=== PATIENT | male | born 1965 | race Caucasian/White ===

== ENCOUNTER → 2023-09-09 08:32 | Outpatient (REF) | payer BC, SELFPAY | LOC: RAD 08:32 | PROVIDERS: ATTENDING PHYSICIAN Specialist; FAMILY PHYSICIAN Family Medicine | DX: Z13.5 Encounter for screening for eye and ear disorders (principal) | CPT/HCPCS: 70030 ==

== ENCOUNTER 2023-09-19 21:25 | Emergency (ER) | payer BC, SELFPAY ==
[2023-09-19 21:27] VITALS: BP 112/62
[2023-09-19 22:20] VITALS: BMI 32.3
[2023-09-19] MEDS: ADACEL 0.5 ML IM (22:27)
--- NOTE | 2023-09-19 23:12 | ED.GENMED ---
History of Present Illness
General
Chief Complaint: Skin Surface Trauma
Source: patient and spouse
Exam Limitations: none
Time Seen by Provider: 09/19/23 22:02
Nursing documentation reviewed up to this point in time: agreed with
Travel History
Have you had any contact with someone who has COVID-19?: No
Do you have any symptoms of coronavirus? Fever > 100 degrees, chills, cough, shortness of breath, sore throat, loss of taste or smell, muscle aches, or headache?: No
History of Present Illness
History of Present Illness:
The patient is a 58-year-old male with past medical history of NIDDM presenting to the emergency department today after slipping in his kitchen hitting his scalp causing laceration to the back of his head did not lose consciousness otherwise feels
well denies any significant pain to his neck no numbness weakness no vomiting.
Past History
Past History
ED Past Medical History: NIDDM
ED Past Surgical History: Other (Hernia repair)
Social History
Tobacco: Non-smoker
Alcohol: Occasional
Personal:
Living: with family
Employment: Employed
Family History
Family History: Cancer
Review of Systems
Review of Systems
Allergies reviewed?: Yes
All Other Systems: ROS reviewed and negative except as documented in HPI and ROS
Phy Exam
Physical Exam
Physical Exam:
GENERAL: Alert , in no apparent distress
EYE: pupils equal and reactive
NECK: Supple, no significant adenopathy.
ENT: Left posterior parietal scalp with a semicircle shaped laceration 7 cm in length deep to the subcutaneous tissue no foreign body seen. o/p clr, mmm.
CARDIAC: Regular rate and rhythm .
LUNGS: Clear breath sounds bilaterally, no acute respiratory distress, no wheezes/rales/rhonchi
ABDOMEN: Soft, without focal tenderness, no r/g, no cvat
NEUROLOGICAL: Alert and oriented, no focal neuro deficits 5 out of 5 upper and lower extremity strength normal sensation with palpating bilaterally normal finger-nose no ritter no pronator drift
SKIN: Warm and dry, skin intact.
MUSCULOSKELETAL: No edema, well perfused.
PSYCH: Normal and appropriate interaction.
Course
Orders/Labs/Results
Orders:
Orders
09/19/23 22:18
CT Head W/o Iv Contrast Urgent
Comment:
Reason For Exam: head injury
Tetanus/Diphth/Acelpertussis [Adacel] 0.5 ml IM .ONCE ONE
Vital Signs
Initial and Last Documented VS:
Initial Vital Signs
Temp Pulse Resp BP Pulse Ox
97.4 F 64 18 112/62 98
09/19/23 21:27 09/19/23 21:27 09/19/23 21:27 09/19/23 21:27 09/19/23 21:27
Last Documented Vital Signs
Temp Pulse Resp BP Pulse Ox
97.4 F 64 18 112/62 98
09/19/23 21:27 09/19/23 21:27 09/19/23 21:27 09/19/23 21:27 09/19/23 21:27
Procedures
Laceration Closure
Left Posterior Parietal:
Status of Wound: clean
Size of Wound in cm: 7
Description of Wound Edges: sharp
Preparation: cleaned with saline
Anesthesia: 1% Lidocaine with epi
Revision/Debridement: routine- no revision and irrigate-direct pressure
Wound exploration: explored to base- no FB and no tendon involvement
Type of Closure: single layer closure
Skin Closure Material: 4-0 nylon
Number of sutures: 9
MDM/Problems Addressed
MDM/Problems Addressed:
58-year-old male presenting to the emergency department after hitting his head after slipping in his kitchen. Denies loss of consciousness not on blood thinners denies any significant symptoms but does have a laceration to his scalp. Because of
the trauma CT scan was obtained to ensure no intracranial injury this was normal. He was given an updated tetanus shot laceration was anesthetized cleaned thoroughly and closed with 9 total sutures. Sutures are absorbable. Return precautions
given for any signs of infection.
*Critical Care Note
Total Time (30-74mins, 75-104mins- exclusive of procedures): Not Applicable
ED Attending Note
-
Portions of this chart may have been created with voice recognition software.� Occasional wrong word or��sound alike� substitutions may have occurred due to the inherent limitations of voice recognition software.
Discharge Plan
Departure
Patient Disposition: Home (Routine Discharge)
Date of Disposition: 09/19/23
Time of Disposition: 23:47
Patient with high blood pressure during this ER visit?: No
Condition: Good
Covid-19: Not Applicable
Discharge Problem:
Laceration of scalp
Instructions: Laceration Repair With Stitches (DC)
Prescriptions:
No Action
omeprazole 20 MG capsule,delayed release(DR/EC)
20 mg PO DAILY
metformin 500 MG tablet extended release 24 hr
2,000 mg PO DAILY
lisinopril 20 MG tablet
20 mg PO Daily
Lexapro:
Daily
oxycodone-acetaminophen 5 MG/325 MG tablet
1 - 2 tab PO Q4HPRN PRN (Reason: pain) Qty: 30 0RF
ibuprofen 600 MG tablet
600 mg PO Q6HPRN PRN (Reason: mild pain) 0RF
Referrals:
Edward Arauz MD [Family Provider] -
Activity Restrictions/Additional Instructions:
You came to the emergency department today with concerns of a scalp laceration. You had 10 total sutures placed. Please keep the area clean covered. you can start putting ointment to help these dissolve after 5 days. Return to the emergency
department for any worsening, new or concerning symptoms.
Interventions
Interventions:
*Risk Screen - Suicide Last Done: 09/19/23 21:27
*General Assessment Last Done: 09/19/23 22:20
*Neglect/Abuse Screening Last Done: 09/19/23 21:27
ED- Fall Risk Assessment Last Done: 09/19/23 22:21
*ED COVID-19 Vaccine History Last Done: 09/19/23 22:20
ED-Skin Assessment Last Done: 09/19/23 22:22
Discharge Date and Time
Print Language: ITALIAN
== END 2023-09-19 23:56 | disposition home or self-care (01) ==
LOC: EMR 21:25
PROVIDERS: EMERGENCY PHYSICIAN Emergency Medicine; FAMILY PHYSICIAN Family Medicine
DX: S01.01XA Laceration without foreign body of scalp, initial encounter (principal); W01.198A Fall on same level from slipping, tripping and stumbling with subsequent striking against other object, initial encounter; Y92.000 Kitchen of unspecified non-institutional (private) residence as the place of occurrence of the external cause; E11.9 Type 2 diabetes mellitus without complications; K21.9 Gastro-esophageal reflux disease without esophagitis; Z79.84 Long term (current) use of oral hypoglycemic drugs
CPT/HCPCS: 99284; 12002; 90471; 70450; 90715

== ENCOUNTER → 2023-09-20 06:36 | Outpatient (REF) | payer BC, SELFPAY | LOC: MRI 3T 06:36 | PROVIDERS: ATTENDING PHYSICIAN Specialist; FAMILY PHYSICIAN Family Medicine | DX: G31.84 Mild cognitive impairment of uncertain or unknown etiology (principal) | CPT/HCPCS: 70551 ==

== ENCOUNTER → 2023-10-08 14:12 | Outpatient (REF) | payer BC, SELFPAY | LOC: HWRAD 14:12 | PROVIDERS: ATTENDING PHYSICIAN Specialist; FAMILY PHYSICIAN Family Medicine | DX: I63.312 Cerebral infarction due to thrombosis of left middle cerebral artery (principal) | CPT/HCPCS: 93880 ==

== ENCOUNTER → 2023-10-26 17:34 | Outpatient (REF) | payer BC, SELFPAY | LOC: RCS 17:34 | PROVIDERS: ATTENDING PHYSICIAN Family Medicine | DX: R42 Dizziness and giddiness (principal); Z86.73 Personal history of transient ischemic attack (TIA), and cerebral infarction without residual deficits | CPT/HCPCS: 93306 ==

== ENCOUNTER 2023-10-27 15:57 | Inpatient (IN) | payer BC, SELFPAY ==
[2023-10-27] VITALS (7 sets, daily range): BP systolic 108–142; BP diastolic 44–79; BMI 33.0; BMI 31.8
--- NOTE | 2023-10-27 11:26 | ED.GENMED ---
History of Present Illness
<LYUBOV Harrison - Last Filed: 10/27/23 14:21>
General
Chief Complaint: Dizziness
Source: patient and ambulance crew
Exam Limitations: none
Time Seen by Provider: 10/27/23 11:24
Nursing documentation reviewed up to this point in time: agreed with
Travel History
Have you had any contact with someone who has COVID-19?: No
Do you have any symptoms of coronavirus? Fever > 100 degrees, chills, cough, shortness of breath, sore throat, loss of taste or smell, muscle aches, or headache?: No
History of Present Illness
History of Present Illness:
Patient is a 58-year-old male with hx of 'mini stroke' , pre diabetic brought by EMS for evaluation. notes the patient seemed a little off having difficulty focusing for the past couple days and then today had diarrhea bowel incontinence
this morning and vomited several times. Patient was given Zofran and route.
reports this morning she came downstairs and found patient in the bathroom with the door open and stool was all over the place. He was diaphoretic and then started to vomit and was confused as per
reports patient has had issues with his memory for about 1 year. He does have a neurologist, DR Ivory however they do not have a diagnosis yet. Patient had a recent outpatient MRI which showed old strokes.
Patient has a history of anxiety depression and has been on multiple medications. Recently his Lexapro was weaned from 20 mg daily to 10 mg for 5 days and patient was recently started on Luvox(5 days ago). In addition to other medications patient
is on Loxitane lamotrigine and Wellbutrin.
Patient presents to the ER awake alert he is having trouble remembering this morning. He denies any headache denies any upper or lower extremity numbness tingling weakness. He does not report his nausea feels better from the medication given by
EMS.
Patient also has had several episodes of mild intermittent chest discomfort with exertion
Past History
<LYUBOV Harrison - Last Filed: 10/27/23 14:21>
Past History
ED Past Medical History: NIDDM
ED Past Surgical History: Other (Hernia repair)
Social History
Tobacco: Non-smoker
Alcohol: Occasional
Personal:
Living: with family
Employment: Employed
Family History
Family History: Cancer
Review of Systems
<LYUBOV Harrison - Last Filed: 10/27/23 14:21>
Review of Systems
Allergies reviewed?: Yes
Other source history: family
All Other Systems: ROS reviewed and negative except as documented in HPI and ROS
Constitutional: Reports no symptoms; Denies fever, fatigue or chills
EENT: Reports no symptoms
Respiratory: Reports no symptoms; Denies trouble breathing
Cardiac: Reports no symptoms
ABD/GI: Reports nausea, vomiting and diarrhea; Denies abdominal pain
: Reports no symptoms
Musculoskeletal: Reports no symptoms
Skin: Reports no symptoms
Neurological: Reports other (memory issues, not new)
Psychiatric: Reports no symptoms
Phy Exam
<LYUBOV Harrison - Last Filed: 10/27/23 14:21>
General Physical Exam
General Presentation: no apparent distress
General age: appears stated age
General Skin: warm and dry
General Habitus: normal
General Mental: alert
General Hydration: appears well hydrated
Cardiovascular Exam
Cardiovascular Exam: regular rate/rhythm, no murmur and normal peripheral pulses
Pulmonary Exam
Pulmonary Exam: lungs clear and no respiratory distress
Neurological Exam
Neurological Exam: alert and oriented x3
Musculoskeletal Exam
Musculoskeletal Exam: full ROM
Skin Exam
Skin Exam: normal color
Psychiatric Exam
Psychiatric Exam: normal mood/affect
Course
<LYUBOV Harrison - Last Filed: 10/27/23 14:21>
Orders/Labs/Results
Orders:
Orders
10/27/23 11:25
Cardiac Monitoring- Treatment ONCE
Urinalysis Reflex To Culture Urgent
10/27/23 11:26
Electrocardiogram (*1) Stat
Reason for Study: Abdominal Pain
CT Head W/o Iv Contrast Urgent
Comment:
Reason For Exam: change in ms
EKG- Treatment ONCE
10/27/23 11:30
Complete Blood Count/With Diff Urgent
Comprehensive Metabolic Panel Urgent
Lipase Urgent
10/27/23 11:56
0.9% Sodium Chloride 1000 ml [Nss] 1,000 ml IV BOLUS
10/27/23 12:06
Add On- LAB Urgent
Tests Added?: troponin
10/27/23 12:13
Electrocardiogram (*1) Urgent
Reason for Study: Chest Pain
EKG- Treatment ONCE
10/27/23 12:14
Troponin I Urgent
Abnormal Lab Results
10/27/23 10/27/23
11:25 11:30
RBC 4.58 L 10^6/uL
(4.70-6.10)
Carbon Dioxide 12 L* mmol/L
(22-30)
Glucose 157 H mg/dl
(70-99)
POC Glucose 146 H mg/dl
(70-99)
10/27/23 11:30
10/27/23 11:30
Vital Signs
Initial and Last Documented VS:
Initial Vital Signs
Temp Pulse Resp BP Pulse Ox
97.9 F 94 18 122/72 100
10/27/23 11:21 10/27/23 11:21 10/27/23 11:21 10/27/23 11:21 10/27/23 11:21
Last Documented Vital Signs
Temp Pulse Resp BP Pulse Ox
97.9 F 89 19 139/68 97
10/27/23 11:21 10/27/23 12:15 10/27/23 12:15 10/27/23 12:00 10/27/23 12:15
Tamper Operator consulted with Physician
Tamper Operator consulted with physician?: Yes
Name of Physician Consulted: Hannah
<Trey Verduzco MD - Last Filed: 10/27/23 14:12>
Orders/Labs/Results
Orders:
Orders
10/27/23 11:25
Cardiac Monitoring- Treatment ONCE
Urinalysis Reflex To Culture Urgent
10/27/23 11:26
Electrocardiogram (*1) Stat
Reason for Study: Abdominal Pain
CT Head W/o Iv Contrast Urgent
Comment:
Reason For Exam: change in ms
EKG- Treatment ONCE
10/27/23 11:30
Complete Blood Count/With Diff Urgent
Comprehensive Metabolic Panel Urgent
Lipase Urgent
10/27/23 11:56
0.9% Sodium Chloride 1000 ml [Nss] 1,000 ml IV BOLUS
10/27/23 12:06
Add On- LAB Urgent
Tests Added?: troponin
10/27/23 12:13
Electrocardiogram (*1) Urgent
Reason for Study: Chest Pain
EKG- Treatment ONCE
10/27/23 12:14
Troponin I Urgent
Abnormal Lab Results
10/27/23 10/27/23
11:25 11:30
RBC 4.58 L 10^6/uL
(4.70-6.10)
Carbon Dioxide 12 L* mmol/L
(22-30)
Glucose 157 H mg/dl
(70-99)
POC Glucose 146 H mg/dl
(70-99)
10/27/23 11:30
10/27/23 11:30
Vital Signs
Initial and Last Documented VS:
Initial Vital Signs
Temp Pulse Resp BP Pulse Ox
97.9 F 94 18 122/72 100
10/27/23 11:21 10/27/23 11:21 10/27/23 11:21 10/27/23 11:21 10/27/23 11:21
Last Documented Vital Signs
Temp Pulse Resp BP Pulse Ox
97.9 F 89 19 139/68 97
10/27/23 11:21 10/27/23 12:15 10/27/23 12:15 10/27/23 12:00 10/27/23 12:15
<LYUBOV Harrison - Last Filed: 10/27/23 14:21>
MDM/Problems Addressed
Differential Diagnosis Includes:
not limited to: Near syncope, dehydration ACS
MDM/Problems Addressed:
Patient is a 58-year-old male currently being worked up for memory issues as per . He has had issues with memory for the past year. He was found on the toilet today diaphoretic confused and incontinent of stool and also vomited. Patient also
has had intermittent chest pain with exertion over the past several days. Patient presents awake alert nausea is improved on arrival. Patient confusion unable to remember what he did this morning. Patient with a low bicarb of 12 given fluids in
the ER no further nausea vomiting. Patient is on medication for anxiety depression and recently had Lexapro weaned and Luvox started
CAT scan head unremarkable. Patient evaluated by ED physician will admit for near syncope, metabolic acidosis
Chronic conditions affecting care:
Memory issues anxiety depression
<LYUBOV Harrison - Last Filed: 10/27/23 14:21>
*Radiology
Radiology exam reviewed: radiology read reviewed
*Pulse Oximetry
Patient hypoxic: no
*EKG
Interpreted by ED Provider?: Yes
Interpretation: normal
Comparison EKG: no changes
Heart Rate: 84
Rate: normal
Rhythm: sinus
Ischemia: non-specific ST changes
*Critical Care Note
Total Time (30-74mins, 75-104mins- exclusive of procedures): Not Applicable
ED Attending Note
<LYUBOV Harrison - Last Filed: 10/27/23 14:21>
-
Portions of this chart may have been created with voice recognition software.� Occasional wrong word or��sound alike� substitutions may have occurred due to the inherent limitations of voice recognition software.
<Trey Verduzco MD - Last Filed: 10/27/23 14:12>
ED Attending Note
Patient seen and examined by attending physician: Yes
I performed the substantive portion of visit, reviewed & personally made and approve the management plan that is documented in note by myself or TESS.: Yes
ED Attending Note:
58-year-old male with a history of mild memory issues and depression with a severe near syncopal episode. Patient does not exactly recall what happened but apparently he went to the bathroom after having a bowel movement the next thing he recalls
is being on the couch diaphoretic clammy and pale. This is where his found him. No chest pain or shortness of breath. However he has had 2 episodes of exertional chest pain in the last few weeks. No headache visual issues etc. Currently at
baseline. Patient had an MRI that did show a recent stroke. He had outpatient echocardiogram and carotid ultrasound. Ultrasound shows plaque and less than 50% stenosis.
Patient's exam is relatively unremarkable. He is awake alert and oriented. He is warm and dry. Perfusing well. Stable vital signs. Speech is normal. Cranial nerves II through XII intact. [id number] is normal. No drift. Lower extremity
strength normal.
Impression: Likely this was a vasovagal near syncope related to going to the bathroom. However his states he had other similar episodes unrelated to this scenario. In addition he has had 2 episodes of exertional chest pain recently. He also
has a lacunar infarct by MRI recently. Given the uncertainty of what actually occurred along with these other symptoms patient warrants further inpatient management.
Discharge Plan
Departure
Patient Disposition: Admit
Date of Disposition: 10/27/23
Time of Disposition: 14:20
Admit to: Telemetry
Admit to doctor: Kerline
Presentation/result/management discussed w/ accepting MD/DO: Hospitalist
Patient with high blood pressure during this ER visit?: No
Condition: Fair
Covid-19: Not Applicable
Discharge Problem:
Near syncope, vomiting and diarrhea, Chest pain
Prescriptions:
No Action
atorvastatin [Lipitor] 40 mg Tablet
40 mg PO DAILY
omeprazole 40 mg Capsule,Delayed Release(Dr/Ec)
40 mg PO DAILY
lamotrigine [Lamictal] 25 mg Tablet
25 mg PO DAILY
lisinopril 10 mg Tablet
10 mg PO DAILY
loxapine succinate 10 mg Capsule
10 mg PO QPM
fluvoxamine 50 mg Tablet
50 mg PO DAILY
metformin 500 mg Tablet Extended Release 24 Hr
1,000 mg PO QPM
bupropion HCl [Wellbutrin XL] 300 mg Tablet Extended Release 24 Hr
300 mg PO DAILY
bupropion HCl [Wellbutrin XL] 150 mg Tablet Extended Release 24 Hr
150 mg PO DAILY
alfuzosin 10 mg Tablet Extended Release 24 Hr
10 mg PO DAILY
tadalafil 5 mg Tablet
5 mg PO DAILY
memantine 10 mg Tablet
10 mg PO BID
Jardiance 10 mg Tablet
10 mg PO DAILY
Wegovy 0.25 mg/0.5 mL Pen Injector
0.25 mg SC TU
alprazolam [Xanax] 1 mg Tablet
1 mg PO BIDPRN PRN (Reason: anxiety)
Referrals:
Edward Arauz MD [Family Provider] -
Interventions
Interventions:
*Risk Screen - Suicide Last Done: 10/27/23 12:28
*General Assessment Last Done: 10/27/23 11:21
*Neglect/Abuse Screening Last Done: 10/27/23 12:28
ED- Neurological Assessment Last Done: 10/27/23 11:31
ED- Cardiac Assessment Last Done: 10/27/23 12:30
ED Swallowing Screen Last Done: 10/27/23 11:31
Discharge Date and Time
Print Language: GUATEMALAN
[2023-10-27 11:27] LABS: Glucose - Point of Care 146 mg/dl (70-99)
[2023-10-27 11:34] LABS: % Basophils 0.8 % (0-2); % Eosinophils 2.7 % (0-6); % Immature Granulocytes 0.5 % (0-0.5); % Lymphocytes 21.8 % (20.5-51.1); % Monocytes 7.1 % (1.7-9.3); % Neutrophils 67.1 % (42.2-75.2); Absolute Basophils 0.1 10^3/uL (0-0.2); Absolute Eosinophils 0.2 10^3/uL (0-0.7); Absolute Lymphocytes 1.6 10^3/uL (1.2-3.4); Absolute Monocytes 0.5 10^3/uL (0.1-0.6); Absolute Neutrophils 4.9 10^3/uL (1.4-6.5); Mean Corp Hgb Conc. 33.3 g/dL (33.0-37.0); Mean Corpuscular Hgb 30.6 pg (27.0-31.0); Mean Corpuscular Volume 91.7 fL (80.0-94.0); Mean Platelet Volume 8.7 fL (7.4-10.4); Nucleated Red Blood Cells % 0 % (-); Platelet Count 250 10^3/uL (130-400); Red Blood Cell Count 4.58 10^6/uL (4.70-6.10); Red Cell Dist. Width 13.9 % (11.5-14.5); White Blood Cell Count 7.4 10^3/uL (4.8-10.8)
[2023-10-27 11:53] LABS: ALT (SGPT) 24 U/L (0-50); AST (SGOT) 36 U/L (17-59); Albumin 4.2 g/dl (3.5-5.0); Alkaline Phosphatase 72 U/L (38-126); Blood Urea Nitrogen 13 mg/dl (9-20); Calcium 9.4 mg/dl (8.4-10.2); Carbon Dioxide 12 mmol/L (22-30); Chloride 107 mmol/L (98-107); Estimated Creatinine Clearance 80 ml/min; Glucose 157 mg/dl (70-99); Potassium 4.6 mmol/L (3.5-5.1); Sodium 138 mmol/L (135-145); Total Bilirubin 0.6 mg/dl (0.2-1.3); Total Protein 7.1 g/dl (6.3-8.2); eGFR > 60.00
[2023-10-27 12:10] LABS: Lipase 201 U/L (23-300)
[2023-10-27] MEDS: NSS 1000 IV (12:26)
[2023-10-27 12:52] LABS: Troponin I < 0.012 ng/ml
--- NOTE | 2023-10-27 15:00 | HPS.HSE ---
Family Physician
-
Family Physician: Edward Arauz
Chief Complaint
-
Vomiting, diarrhea, intermittent chest pain, increased confusion
History of Present Illness
58-year-old male from home by EMS who his states he has been off for the past few days having difficulty focusing and off balance. She states physical therapy has been there twice to assess for gait disturbance. The patient recalls having to
have a bowel movement this morning then the next thing he knew he was on the sofa vomiting. His states she saw stool formed all over the bathroom then found her sitting on the sofa diaphoretic with confusion and he began to vomit
several times. He was given Zofran en route to the hospital. He has history of prior strokes found on MRI 3 weeks ago and some memory impairment over the past year of unclear etiology. He follows with Dr. UMANA however does not have a formal
diagnosis yet. He used to drink daily hard liquor 3-4 drinks a day for 5 years stopped approximately 15 months ago. He also had complained of mild intermittent chest pain with exertion several episodes and had an echo yesterday 10/27/2023 he has
follow-up appointment with [facility] on December 13.. He recently had his Lexapro wean from 20 mg daily to 5 mg over the past 5 days and was started on Luvox 5 days ago in addition to Lamictal, Wellbutrin and Loxitane for his anxiety and
depression. He is on Wegovy 0.25 mg subcu on Tuesdays for weight loss his last dose was 1 week ago 10/19/2023.
He has past medical history of GERD, anxiety, depression, DM2, impaired vision, CVA,? Memory impairment, obesity, former alcohol abuse 5 years stopped 15 months ago
Medical History
Past Medical History
Past Medical History: Reports Other
Additional Past Medical History:
GERD
anxiety/depression
DM2
impaired vision
CVA: Prior lacunar infarct right bills radiata/left frontal lobe unknown year
Memory impairment x 1 year no formal diagnosis
obesity
Past Surgical History: Reports Other
Additional Past Surgical History:
Hernia repair
Laparoscopic cholecystectomy November 2016
Gastric sleeve surgery
Social History
Tobacco: Former Smoker (Quit 40 years ago)
Alcohol: Former (3-4 drinks of hard liquor daily stopped 15 months ago end of 2021)
Personal:
Living: With Family ()
Family History
Family History: Other (Father [place] age 60, CVA from lung cancer mother lung cancer)
Allergies / Home Medications
Allergies reflects when Allergies were last updated in [facility].
Home Medications with original date entered in [facility]
Allergy/Medication List:
Allergies
Allergy/AdvReac Type Severity Reaction Status Date / Time
No Known Allergies Allergy Verified 09/19/23 21:30
Home Medications
Aspir-81 81 mg PO DAILY 10/27/23
alfuzosin 10 mg tablet,extended release 24 hr 10 mg PO DAILY Urinary Issue 10/27/23
alprazolam 1 mg tablet (Xanax) 1 mg PO BIDPRN PRN anxiety 10/27/23
atorvastatin 40 mg tablet (Lipitor) 40 mg PO DAILY High Cholesterol 10/27/23
bupropion HCl 150 mg 24 hr tablet, extended release (Wellbutrin XL) 150 mg PO DAILY Mental Health 10/27/23
bupropion HCl 300 mg 24 hr tablet, extended release (Wellbutrin XL) 300 mg PO DAILY Mental Health 10/27/23
empagliflozin 10 mg tablet (Jardiance) 10 mg PO DAILY Diabetes 10/27/23
fluvoxamine 50 mg tablet 50 mg PO DAILY Mental Health 10/27/23
lamotrigine 25 mg tablet (Lamictal) 25 mg PO DAILY Neurological Condition 10/27/23
lisinopril 10 mg tablet 10 mg PO DAILY Blood Pressure 10/27/23
loxapine succinate 10 mg capsule 10 mg PO QPM Mental Health 10/27/23
memantine 10 mg tablet 10 mg PO BID Neurological Condition 10/27/23
metformin 500 mg tablet,extended release 24 hr 1,000 mg PO QPM Diabetes 10/27/23
omeprazole 40 mg capsule,delayed release 40 mg PO DAILY Gastrointestinal Issue 10/27/23
semaglutide (weight loss) 0.25 mg/0.5 mL subcutaneous pen injector (Wegovy) 0.25 mg SC TU Diabetes 10/27/23
tadalafil 5 mg tablet 5 mg PO DAILY Urinary Issue 10/27/23
Review of Systems
-
History Source: Patient and Family ()
Constitutional: Denies Fever or Chills
EENT: Denies Sore Throat or Runny Nose
Respiratory: Denies Cough or Trouble Breathing
Cardiac: Reports Chest Pain (Intermittent) and Diaphoresis
Abdomen/GI: Reports Nausea, Vomiting and Diarrhea; Denies Abdominal Pain, Constipated, Bloody Stools or Black Stools
: Denies Dysuria, Frequency, Flank Pain, Incontinence or Difficulty Voiding
Musculoskeletal: Denies Joint Pain or Edema
Skin: Denies Itching or Rash
Neurological: Reports Headache; Denies Dizzy or Weakness
Endocrine: Reports No Symptoms
Hematologic/Lymphatic: Reports No Symptoms
Psych: Reports Calm
Physical Exam
Vital Signs
Vital Signs
Temp Pulse Resp BP Pulse Ox
97.9 F 91 18 142/76 100
10/27/23 11:21 10/27/23 14:52 10/27/23 12:30 10/27/23 14:52 10/27/23 12:30
Physical Exam
General: Comfortable, Conversant and Other (Slight memory impairment cannot recall all events of today); No Pain or Fever
HEENT: NormoCephalic, Anicteric, Moist mucous membranes, PERRLA, [place] Conjunctivae, No Ptosis and Neck Nontender
Respiratory: Clear; No Wheezes, Rales or Rhonchi
Cardiac: S1/S2 and Regular Rhythm; No Murmur, Rub, Gallop or Peripheral Edema
Breast: Deferred by me
GI: Soft, Non Tender, Non Distended, Normal Bowel Sounds and No Hepatosplenomegaly
Rectal: Deferred by Provider
Genito-urinary: Deferred by me
Musculoskeletal: No Clubbing, No Cyanosis and No Edema
Skin: Warm and Dry; No Rash
Neuro: AO x 3 (But with slight memory impairment cannot recall events from today from bathroom to the living room), Cranial Nerves Intact and No Sensory Deficits; No Slurred Speech, Facial Droop or Tremors
Psych: Calm
Laboratory Results
-
10/27/23 11:30
10/27/23 11:30
Laboratory Results
Total Bilirubin 0.6 mg/dl (0.2-1.3) 10/27/23 11:30
AST 36 U/L (17-59) 10/27/23 11:30
ALT 24 U/L (0-50) 10/27/23 11:30
Alkaline Phosphatase 72 U/L (38-126) 10/27/23 11:30
Troponin I < 0.012 ng/ml 10/27/23 12:14
Lipase 201 U/L (23-300) 10/27/23 11:30
Data Reviewed
-
CT Scan: Report Reviewed by me
Lab Data: Labs Reviewed by me
Impression/Plan
-
Impression/plan:
Observation TELE
#Vomiting/diarrhea concern for acute gastroenteritis
Last dose of Wegovy 0.25 mg 1 week ago 10/19/2023
-Check stool WBC, stool culture, C. difficile
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
-OBST series -if negative may have clears and advance as tolerated
-IV Zofran as needed nausea
-IV NSS
-IV PPI
EKG: NSR 84 bpm, QTc 449 MS no significant change from November 2016
#Increased memory impairment from baseline cognitive impairment prior history of strokes, prior alcohol use, depression
#Hx cognitive impairment x 1 year no formal diagnosis follows with neuro
#CVA: Prior lacunar infarct right bills radiata/left frontal lobe unknown year
-Tylenol for headache
-Continue memantine 10 mg twice daily
cont asa 81 mg daily
-Check orthostatic vitals
CT head: No acute intracranial normality
MRI brain 09/20/2023 without contrast prior lacunar infarct in the right bills radiata and left frontal lobe
Carotid ultrasound 10/08/2023: Calcified plaque is identified scattered throughout the bilateral cervical carotid system less than 50% stenosis
#Prior alcohol abuse
-Used to drink 3-4 hard liquor drinks stopped 15 months ago end of 2021
#Hx gastric sleeve surgery
#GERD
-IV PPI, prior omeprazole 40 mg daily
#HTN�benign
BP 142/76
-Continue lisinopril 10 mg daily with hold parameters
#DM2
-Accu-Cheks SSI, check HgbA1c
-Hold metformin 1000 mg every afternoon, Jardiance 10 mg daily
#Anxiety/depression
-When able to tolerate p.o.May resume Wellbutrin, fluvoxamine 50 Mg daily, Lamictal 25 mg daily, loxapine 10 mg every afternoon
-Xanax 1 mg p.o. twice daily as needed anxiety
#BPH
-Continue alfuzosin 10 mg daily
-Bladder scan as needed
#Obesity due to excess calorie consumption�BMI 33 EKG
Patient currently on Wegovy 0.25 Mg subcu Tuesdays10/19/23 last dose
DVT prophylaxis
Scd's
Full code
--- NOTE | 2023-10-27 15:09 | W.PN.UPDATE ---
Update Note
Progress Note Update
This serves an an addendum to H&P written by DEPUTY CHIEF COUNSEL Nathalie Colbert
I saw and examined the patient.
The DEPUTY CHIEF COUNSEL's note was reviewed and I agree with the note.
Comment:
Mr. Edward Terrell is a 58 yo man with hx NIDDM, anxiety/depression who presents to the ER with confusion, vomiting and diarrhea. Patient has had recent work-up of memory issues over past year with outpatient MRI showing old strokes. This morning
patient reports watching tv and eating some pretzels waiting for to come downstairs. He doesn't remember getting to bathroom where he did not make it to toilet. found him on the couch, diaphoretic and vomiting. Currently patient feels
well, no abdominal pain or nausea. He has not eaten anything since. He is able to report entire history and work up of memory issues over past year. Suspect transient confusion in setting of GI upset related to TME 2/2 enteritis versus vasovagal
reaction?
Triage Vitals: T 97.9, P 94, RR 18, BP 122/72, SpO2 100%
LABS: WBC 7.4, Hg 14, PLT 250, Na 138, K+ 4.7, CO2 12, Cr 1.3, Trop negative
HEAD CT
IMPRESSION:
No evidence of acute intracranial abnormality.
Bowel Incontinence
Vomiting
-concern for enteritis
-will obtain obstruction series and stool studies if able to collect
-admit to telemetry
-advance diet as tolerated (if x-ray OK)
-IVF
-hold WEB SITE ADMIN Semaglutide and may need to
Metabolic Acidosis 2/2 diarrhea
-IVF as above
-PT/OT
Confusion; TME 2/2 above versus vasovagal episode?
-currently resolved
Chest pain with exertion
-patient has cardiology appt in November
-Troponin negative
-will need outpatient stress test
Hx CVA
-continue WEB SITE ADMIN asa/statin
Anxiety
-WEB SITE ADMIN regimen
Memory Loss
-patient with hx alcohol use likely contributing as well as finding old strokes, depression
-follows with neurology as outpatient
DVT PPx Lovenox subQ
FULL CODE
[2023-10-27] MEDS: TYLENOL 650 MG PO ×2 (15:45→20:49)
[2023-10-27] MEDS: PROTONIX IV 40 MG IV (15:46)
[2023-10-27 15:54] LABS: Urine Albumin Trace (Neg - Trace); Urine Bilirubin Negative (Negative); Urine Character Clear (Clear); Urine Color Yellow; Urine Glucose 3+ (Negative); Urine Ketone 1+ (Negative); Urine Leukocyte Negative (Negative); Urine Nitrite Negative (Negative); Urine Occult Blood 1+ (Negative); Urine Specific Gravity 1.015 (<1.030); Urine Urobilinogen Negative (Neg - 1+)
[2023-10-27 16:01] LABS: Urine Squamous Cell 0-2 /LPF (Few); Urine White Cell 0-2 /HPF (0-5)
[2023-10-27 16:02] LABS: Urine Bacteria Few (Negative)
[2023-10-27 17:34] LABS: Magnesium 2.3 mg/dl (1.6-2.3)
[2023-10-27] MEDS: SODIUM BICARBONATE 1150 MEQ IV (17:52)
[2023-10-27] MEDS: NAMENDA 10 MG PO (20:50)
[2023-10-28 03:15] VITALS: BP 114/64; BP 124/69; BP 96/60; PULSE 61; PULSE 64; PULSE 68
[2023-10-28 06:36] LABS: % Basophils 0.7 % (0-2); % Eosinophils 2.1 % (0-6); % Immature Granulocytes 0.4 % (0-0.5); % Lymphocytes 20.4 % (20.5-51.1); % Monocytes 7.6 % (1.7-9.3); % Neutrophils 68.8 % (42.2-75.2); Absolute Basophils 0.1 10^3/uL (0-0.2); Absolute Eosinophils 0.2 10^3/uL (0-0.7); Absolute Lymphocytes 1.9 10^3/uL (1.2-3.4); Absolute Monocytes 0.7 10^3/uL (0.1-0.6); Absolute Neutrophils 6.5 10^3/uL (1.4-6.5); Hematocrit 39.4 % (39.0-52.0); Hemoglobin 13.2 g/dL (13.0-18.0); Mean Corp Hgb Conc. 33.5 g/dL (33.0-37.0); Mean Corpuscular Hgb 30.5 pg (27.0-31.0); Mean Platelet Volume 8.8 fL (7.4-10.4); Nucleated Red Blood Cells % 0 % (-); Platelet Count 210 10^3/uL (130-400); Red Blood Cell Count 4.33 10^6/uL (4.70-6.10); White Blood Cell Count 9.5 10^3/uL (4.8-10.8)
[2023-10-28 06:53] LABS: Blood Urea Nitrogen 13 mg/dl (9-20); Calcium 8.9 mg/dl (8.4-10.2); Carbon Dioxide 29 mmol/L (22-30); Chloride 103 mmol/L (98-107); Estimated Creatinine Clearance 78 ml/min; Glucose 95 mg/dl (70-99); HDL Cholesterol 60 mg/dl; LDL Cholesterol, Calculated 50 mg/dl; Potassium 4.2 mmol/L (3.5-5.1); Sodium 138 mmol/L (135-145); Total Cholesterol 128 mg/dl (50-199); Triglyceride 92 mg/dl (10-149); Very Low Density Lipoprotein 18 mg/dl (0-30); eGFR > 60.00
[2023-10-28 07:00] VITALS: BP 129/67
[2023-10-28] MEDS: SODIUM BICARBONATE 1150 MEQ IV (08:10)
[2023-10-28] MEDS: LAMICTAL 25 MG PO (08:11)
[2023-10-28] MEDS: ZESTRIL 10 MG PO (08:11)
[2023-10-28] MEDS: LIPITOR 40 MG PO (08:11)
[2023-10-28] MEDS: FLOMAX 0.400000000000000022 MG PO (08:11)
[2023-10-28] MEDS: LOW STRENGTH ASPIRIN 81 MG PO (08:11)
[2023-10-28] MEDS: NAMENDA 10 MG PO (08:11)
[2023-10-28] MEDS: PROTONIX IV 40 MG IV (08:12)
[2023-10-28] MEDS: NSS (PRESERVATIVE FREE) 10 ML IV (08:12)
[2023-10-28] MEDS: WELLBUTRIN XL (24 hour extended release) 150 MG PO (08:15)
[2023-10-28] MEDS: LUVOX 50 MG PO (08:15)
[2023-10-28] MEDS: WELLBUTRIN XL (24 hour extended release) 300 MG PO (08:15)
[2023-10-28 11:00] VITALS: BP 119/64
--- NOTE | 2023-10-28 11:24 | W.PN.HOSP.TC ---
Today's Communication/Plan
-
stop fluids
neuro consult
glucometer at DC
orthostats
Assessment / Plan
Assessment / Plan
Mr. Edward Terrell is a 58 yo man with hx NIDDM, anxiety/depression who presents to the ER with confusion, vomiting and diarrhea. Patient has had recent work-up of memory issues over past year with outpatient MRI showing old strokes. This morning
patient reports watching tv and eating some pretzels waiting for to come downstairs. He doesn't remember getting to bathroom where he did not make it to toilet. found him on the couch, diaphoretic and vomiting. Currently patient feels
well, no abdominal pain or nausea. He has not eaten anything since. He is able to report entire history and work up of memory issues over past year. Suspect transient confusion in setting of GI upset related to TME 2/2 enteritis versus vasovagal
reaction?
Triage Vitals: T 97.9, P 94, RR 18, BP 122/72, SpO2 100%
LABS: WBC 7.4, Hg 14, PLT 250, Na 138, K+ 4.7, CO2 12, Cr 1.3, Trop negative
HEAD CT
IMPRESSION:
No evidence of acute intracranial abnormality.
Bowel Incontinence
Vomiting
-concern for enteritis that is now resolved
-tolerating diet
Metabolic Acidosis 2/2 diarrhea
-resolved this AM
-stop fluids
Confusion; TME 2/2 above versus vasovagal episode?
Hx balance issues over past month
-currently resolved
- also explained episodes over past month associated with loss of balance. She is requesting another MRI stating MRI with contrast was to be ordered as outpatient (that this was PT's recommendation)
-I told her I don't see need for repeat MRI but will consult neurology given episodes over past month
-will check orthostats
-patient to be prescribed glucometer on discharge - can these episodes be related to hypoglycemia?
DM
-patient on metformin, Jardiance and Semaglutide
-will need to prescribe glucometer
-BGL mildly elevated can likely stop Jardiance and Semaglutide at DC - awaiting A1c
Chest pain with exertion
-patient has cardiology appt in November
-Troponin negative
-will need outpatient stress test
Hx CVA
-continue [employer]GER asa/statin
Anxiety
-[employer]GER regimen
Memory Loss
-patient with hx alcohol use likely contributing as well as finding old strokes, depression
-follows with neurology as outpatient
DVT PPx Lovenox subQ
FULL CODE
Anticipated Discharge: Within 24 hours
Subjective/Interval History
-
Date of Service: October 28, 2023
feeling well this morning
eating and drinking well
wants to go home
Objective Data
-
Labs:
Laboratory Results
10/28/23
06:09
WBC 9.5
Hgb 13.2
Hct 39.4
Plt Count 210
Sodium 138
Potassium 4.2
Chloride 103
Carbon Dioxide 29
BUN 13
Creatinine 1.3
Glucose 95
Calcium 8.9
Vital Signs:
Vital Signs
Temp Pulse Resp BP Pulse Ox
98.4 F 65 18 129/67 97
10/28/23 07:00 10/28/23 08:11 10/28/23 07:00 10/28/23 08:11 10/28/23 07:00
I&O
10/27/23 10/28/23 10/29/23
06:59 06:59 06:59
Intake Total 1440 / 1440
Balance 1440 / 1440
Review of Systems
-
History Source: Patient
All other systems: Reviewed and negative
Physical Exam
-
General: No Apparent Distress
HEENT: PERRLA
Respiratory: Clear to Auscultation; Negative Wheezes
Cardiac: Regular Rhythm and S1/S2
GI: Soft and Nontender
Musculoskeletal: No Edema
Skin: Warm and Dry; Negative Rash
Neuro: AO x 3
Psych: Calm
Data Reviewed
-
Diagnostic Radiology: Report Reviewed by me
Labs: Labs Reviewed by me
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
[2023-10-28 12:45] VITALS: BP 109/57; BP 110/55; BP 93/56; PULSE 73; PULSE 80; PULSE 89
--- NOTE | 2023-10-28 12:57 | CM ---
Addendum entered by MARAL Cuevas 10/28/23 14:32:
Patient medically cleared for discharge. Met with patient and his who expressed that they don't have VN on a regular basis and therefore no referral needs to be sent. Patient stated that the VN comes through the insurance.
Original Note:
Reviewed chart spoke with patient's on phone to obtain information for assessment. Patient's stated that patient lives with her in a two story home and two steps to enter. She described him as independent with his ADLs, personal care,
dressing, bathing and ambulates without a cane. She denied any DME in his home. 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 He drives and can get to his appointments. 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
Patient' stated that patient has [facility]. He has never had SNF.
Patient has a prescription plan and uses [facility] in [place] for all of her medications.
His PCP is, Dr. Edward Arauz
Patient's feels that patient will be able to return home when medically stable and will not have any needs.
Will make referral to [facility] prior to patient's discharge.
Plan: Case management will continue to follow and assist with discharge planning. Patient's stated that patient can return home with resumption of care through [facility].
--- NOTE | 2023-10-28 13:55 | W.DS.TRANS ---
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
-
Discharge Instructions:
Discharge Diagnosis/Procedures confusion in setting of likey vasovagal event in
setting of vomiting and loose stools
Diet Regular,Diabetic, Carb Controlled
Activity As tolerated
Driving Restrictions As prior to admission
Bathing Restrictions None
Instructions:
Stand-Alone Forms:
Changes to Home Medications: Yes
Discharge Medications:
DC Medications w/original date entered in [facility]
alprazolam 1 mg tablet (Xanax) 1 mg PO BIDPRN PRN anxiety 10/27/23
atorvastatin 40 mg tablet (Lipitor) 40 mg PO DAILY High Cholesterol 10/27/23
bupropion HCl 150 mg 24 hr tablet, extended release (Wellbutrin XL) 150 mg PO DAILY Mental Health 10/27/23
bupropion HCl 300 mg 24 hr tablet, extended release (Wellbutrin XL) 300 mg PO DAILY Mental Health 10/27/23
fluvoxamine 50 mg tablet 50 mg PO DAILY Mental Health 10/27/23
lamotrigine 25 mg tablet (Lamictal) 25 mg PO DAILY Neurological Condition 10/27/23
loxapine succinate 10 mg capsule 10 mg PO QPM Mental Health 10/27/23
memantine 10 mg tablet 10 mg PO BID Neurological Condition 10/27/23
metformin 500 mg tablet,extended release 24 hr 1,000 mg PO QPM Diabetes 10/27/23
omeprazole 40 mg capsule,delayed release 40 mg PO DAILY Gastrointestinal Issue 10/27/23
tadalafil 5 mg tablet 5 mg PO DAILY Urinary Issue 10/27/23
aspirin 81 mg chewable tablet (Children's Aspirin) 81 mg PO DAILY #0 tabs 10/28/23
blood sugar diagnostic (MyzeTouch Verio test strips) #200 ea 10/28/23
blood-glucose meter (OneTouch Verio Flex Meter) #1 ea 10/28/23
lancets 30 gauge (OneTouch Delica Plus Lancet) #200 ea 10/28/23
lisinopril 5 mg tablet 5 mg PO DAILY #30 tabs 10/28/23
tamsulosin 0.4 mg capsule (Flomax) 0.4 mg PO HS #30 caps 10/28/23
Home Medication Changes
Stop Alfuzosin. This can lead to drop in blood pressure with standing. This is replaced with Flomax.
Decrease Lisinopril from 10 to 5mg daily (You can cut pill in half or grain picker new script).
Stop Wegovy as this can lead to gastrointestinal upset.
Stop Jardiance for now. Check your blood glucose levels 3x/day at home before meals and report results to PCP. You may not need to resume this medication. Your HgA1c is pending from this hospitalization, your PCP will see the result.
continue Metformin for diabetes
Pending Results: No
--- NOTE | 2023-10-28 13:58 | W.DCSUMMARY ---
Discharge Summary
Discharge Data
Date of Admission: 10/27/23
Date of Discharge: 10/28/23
-
Pending Results: No
Hospital Course
Discharging Physician : Dr. Annette Churchill
Disposition : Home
Primary care physician : Dr. Edward Arauz
Principal Discharge diagnosis : confusion in setting of likely vasovagal event in setting of vomiting and loose stools
Hospital Course :
Mr. Edward Terrell is a 58 yo man with hx NIDDM, anxiety/depression who presents to the ER with confusion, vomiting and diarrhea. Patient has had recent work-up of memory issues over past year with outpatient MRI showing old strokes. Triage
vitals stable. Labs significant for WBC 7.4, CO2 12, Cr 1.3, Trop negative. Head CT without acute abnormality. Obstruction series negative. Patient was observed overnight, given IVF with normalization of labs and no further episodes of vomiting
or confusion. Patient had one more episode of loose stools. Stool studies checked and negative for C. Diff and Norovirus, culture pending.
History suggestive of vasovagal event leading to confusion in setting of GI upset. brought up concern of periods of imbalance over past month. Neurology consulted. His orthostats were almost positive here, certainly orthostasis can explain
symptoms. He is on Alfuzosin which will be stopped and replaced with Flomax. Concern he may also have episodes of hypoglycemia given BGL 140's here off of all meds. He is told to stop his Wegovy on discharge as may also lead to GI symptoms. He
is told to stop Metformin as well as presented with metabolic acidosis. He is prescribed a glucometer and his BGL will be monitored closely on Jardiance. PCP to adjust further if necessary.
Patient was mobilizing on his own in room prior to discharge without e/o imbalance, cleared by PT.
Time spent on discharge was 35 minutes.
Important imaging findings :
HEAD CT
IMPRESSION:
No evidence of acute intracranial abnormality.
Procedure findings :
Discharge Plan
-
Patient Disposition: Home (Routine Discharge)
Discharge Diagnosis/Procedures: confusion in setting of likely vasovagal event in setting of vomiting and loose stools
Diet: Regular and Diabetic, Carb Controlled
Activity: As tolerated
Driving Restrictions: As prior to admission
Bathing Restrictions: None
Referrals:
Edward Arauz MD [Family Provider] - in less than 1 week
Additional Discharge Medication Instructions: Stop Alfuzosin. This can lead to drop in blood pressure with standing. This is replaced with Flomax.
Decrease Lisinopril from 10 to 5mg daily (You can cut pill in half or mixing picker tender new script).
Stop Wegovy as this can lead to gastrointestinal upset.
Stop Metformin for now given presentation with loose stools and metabolic acidosis (abnormal blood work on arrival). Check your blood glucose levels 3x/day at home before meals and report results to PCP. Your HgA1c is pending from this
hospitalization, your PCP will see the result.
continue Jardiance for diabetes
Prescriptions:
New
(DME) OneTouch Verio test strips Strip
Qty: 200 0RF
Rx Instructions:
E 11.65 Test BID in pattern As Directed
(DME) lancets [OneTouch Delica Plus Lancet] 30 gauge Misc
Qty: 200 0RF
Rx Instructions:
E11.65 test BID in pattern As Directed
(DME) blood-glucose meter [OneTouch Verio Flex meter] Misc
Qty: 1 0RF
Rx Instructions:
E 11.65 test BID in pattern As Directed
aspirin [Children's Aspirin] 81 mg Tablet,Chewable
81 mg PO DAILY Qty: 0 0RF
lisinopril 5 mg Tablet
5 mg PO DAILY Qty: 30 0RF
tamsulosin [Flomax] 0.4 mg capsule
0.4 mg PO HS Qty: 30 0RF
Jardiance 10 mg tablet
10 mg PO DAILY Qty: 30 0RF
Continued
atorvastatin [Lipitor] 40 mg Tablet
40 mg PO DAILY
omeprazole 40 mg Capsule,Delayed Release(Dr/Ec)
40 mg PO DAILY
lamotrigine [Lamictal] 25 mg Tablet
25 mg PO DAILY
loxapine succinate 10 mg Capsule
10 mg PO QPM
fluvoxamine 50 mg Tablet
50 mg PO DAILY
bupropion HCl [Wellbutrin XL] 300 mg Tablet Extended Release 24 Hr
300 mg PO DAILY
Patient Comments:
TAKES WITH 150MG
bupropion HCl [Wellbutrin XL] 150 mg Tablet Extended Release 24 Hr
150 mg PO DAILY
Patient Comments:
TAKE WITH 300MG
tadalafil 5 mg Tablet
5 mg PO DAILY
memantine 10 mg Tablet
10 mg PO BID
alprazolam [Xanax] 1 mg Tablet
1 mg PO BIDPRN PRN (Reason: anxiety)
Discontinued
lisinopril 10 mg Tablet
10 mg PO DAILY
metformin 500 mg Tablet Extended Release 24 Hr
1,000 mg PO QPM
alfuzosin 10 mg Tablet Extended Release 24 Hr
10 mg PO DAILY
Jardiance 10 mg Tablet
10 mg PO DAILY
Wegovy 0.25 mg/0.5 mL Pen Injector
0.25 mg SC TU
Aspir-81
81 mg PO DAILY
Discharge Orders:
Discharge Patient (As Directed); Ordered 10/28/23
Ordered By: Annette Churchill
Discharge Date and Time
Print Language: YAKUT
[2023-10-28 14:26] LABS: Glycohemoglobin (HgbA1c) 5.6 % (4.0-5.6)
[2023-10-28 14:36] VITALS: BP 117/66
== END 2023-10-28 15:26 | disposition home or self-care (01) | DRG 312 ==
LOC: 3 WEST ACU 15:57
PROVIDERS: Clinical Nurse Specialist Family Health; Nurse Practitioner; ADMITTING PHYSICIAN Student in an Organized Health Care Education/Training Program; CONSULT PHYSICIAN Student in an Organized Health Care Education/Training Program; EMERGENCY PHYSICIAN Emergency Medicine; FAMILY PHYSICIAN Family Medicine
DX: I95.1 Orthostatic hypotension (principal); E87.20 Acidosis, unspecified; Z87.891 Personal history of nicotine dependence; K21.9 Gastro-esophageal reflux disease without esophagitis; E11.9 Type 2 diabetes mellitus without complications; F41.9 Anxiety disorder, unspecified; F32.A Depression, unspecified; N40.0 Benign prostatic hyperplasia without lower urinary tract symptoms; E66.09 Other obesity due to excess calories; Z68.31 Body mass index [BMI] 31.0-31.9, adult
CPT/HCPCS: 70450; 74022; 80048; 80053; 80061; 81003; 81015; 82962; 83036; 83690; 83735; 84484; 85025; 87045; 87046; 87324; 87427; 87449; 87798; 89055; 93005; 93970; 96360; 99285

== ENCOUNTER 2023-12-17 12:47 | Day surgery (SDC) | payer BC, SELFPAY ==
[2023-12-17] VITALS (8 sets, daily range): BP systolic 127–140; BP diastolic 69–95; BMI 34.1
[2023-12-17 13:24] LABS: Hematocrit 35.6 % (39.0-52.0); Hemoglobin 12.3 g/dL (13.0-18.0); Mean Corp Hgb Conc. 34.6 g/dL (33.0-37.0); Mean Corpuscular Hgb 31.5 pg (27.0-31.0); Mean Platelet Volume 9.5 fL (7.4-10.4); Platelet Count 188 10^3/uL (130-400); Red Blood Cell Count 3.91 10^6/uL (4.70-6.10); Red Cell Dist. Width 14.8 % (11.5-14.5); White Blood Cell Count 7.5 10^3/uL (4.8-10.8)
[2023-12-17 13:37] LABS: Blood Urea Nitrogen 18 mg/dl (9-20); Calcium 8.4 mg/dl (8.4-10.2); Carbon Dioxide 21 mmol/L (22-30); Chloride 112 mmol/L (98-107); Estimated Creatinine Clearance 93 ml/min; Glucose 106 mg/dl (70-99); Potassium 3.8 mmol/L (3.5-5.1); Sodium 139 mmol/L (135-145); eGFR > 60.00
[2023-12-17 14:51] LABS: ACT-LR - POC 161 Seconds (116-155)
[2023-12-17 15:01] LABS: ACT-LR - POC 282 Seconds (116-155)
[2023-12-17] MEDS: NSS 1000 IV (15:26)
--- NOTE | 2023-12-17 15:50 | ITS.CL.CATH ---
Dietary Aide Teacher - Catheterization
Cardiac Catheterization
Procedure Report:
CARDIAC CATHETERIZATION REPORT
Date of Procedure: 12/17/2023
Referring: Yevgeniy Lebron MD
Indication: Recent onset angina
HEMODYNAMIC DATA
AO: 137/73
LV: 137/16
LEFT VENTRICULOGRAPHY: Mild apical hypokinesis with EF 54%
CORONARY ANGIOGRAPHY
Dominance: Codominant
Left Main: Normal
LAD: 95% proximal LAD stenosis about 3 mm distal to the LAD takeoff. There is moderate to severe calcification of the proximal and mid LAD. There are tandem 30% mid LAD lesions and 40-50% mid to distal LAD stenosis.
Circumflex: Codominant vessel with 40% proximal stenosis and otherwise mild luminal irregularities. The circumflex terminates with a small left PDA.
RCA: Small distribution codominant vessel with 30% mid stenosis. The RCA terminates with a very small PDA. There is the beginning of a septal collateral to the LAD
Angioplasty: At the conclusion of the diagnostic study the patient underwent proximal LAD PCI. Heparin was used for anticoagulation. Plavix 600 mg was administered the procedure conclusion. A JL 4 guide catheter was used. A BMW wire was easily
passed into the distal LAD. Angioplasty with a 3.0 x 8 trek to 10 diane was followed by placement of a 4.0 x 12 Xience SELINA deployed at 15 diane then postdilated with a 4.0 NC trek to 17 diane. The final angiographic result was outstanding. There were
no procedural complications.
Closure Device: None-the procedure was performed via the right radial artery. The Morro's test was normal prior to the procedure
Radiation (mGy): 875
DAP (cm2.Gy): 72.3
Fluoroscopy time: 6.4 minutes
CONCLUSIONS
1: Recent onset angina presentation
2: Mild apical hypokinesis with EF 54%
3. Severe single-vessel CAD with 95% proximal LAD stenosis
4. Successful stenting of proximal LAD disease using 4.0 x 12 Xience SELINA with outstanding result
5. Recommend dual antiplatelet therapy for 12 months minimum
6. We will restart high intensity statin. I note a prior LDL 50 on atorvastatin.
Copy to: Yevgeniy Lebron MD, Edward Arauz MD
Gaudencio Arora MD, FACC, [facility], [facility]
--- NOTE | 2023-12-17 16:34 | PTCARENOTE ---
Addendum entered by Judith Villa RN 12/17/23 16:36:
Cardiac rehab speaking to pt only. No pt family at pt bedside.
Original Note:
Cardiac rehab at pt bedside speaking to pt and pt's family.
== END 2023-12-17 20:56 | disposition home or self-care (01) ==
LOC: CATH 12:47
PROVIDERS: Nurse Practitioner; ATTENDING PHYSICIAN Internal Medicine Cardiovascular Disease; FAMILY PHYSICIAN Family Medicine; OTHER PHYSICIAN Internal Medicine Cardiovascular Disease
DX: I25.119 Atherosclerotic heart disease of native coronary artery with unspecified angina pectoris (principal); E11.9 Type 2 diabetes mellitus without complications; K21.9 Gastro-esophageal reflux disease without esophagitis; E66.09 Other obesity due to excess calories; Z68.33 Body mass index [BMI] 33.0-33.9, adult; Z86.73 Personal history of transient ischemic attack (TIA), and cerebral infarction without residual deficits; Z87.891 Personal history of nicotine dependence; Z79.85 Long-term (current) use of injectable non-insulin antidiabetic drugs; Z79.84 Long term (current) use of oral hypoglycemic drugs; Z79.82 Long term (current) use of aspirin; I10 Essential (primary) hypertension; Z79.02 Long term (current) use of antithrombotics/antiplatelets
CPT/HCPCS: C1769; C1725; C1894; 80048; 85027; 85347; 93005; 93458; C1874; C9600; Q9967

== ENCOUNTER → 2024-07-04 07:16 | Outpatient (REF) | payer BC, SELFPAY | LOC: MRI 3T 07:16 | PROVIDERS: ATTENDING PHYSICIAN Specialist; FAMILY PHYSICIAN Family Medicine | DX: R42 Dizziness and giddiness (principal) | CPT/HCPCS: 70544 ==

== ENCOUNTER → 2025-01-30 11:29 | Outpatient (REF) | payer BC, SELFPAY | LOC: PET 11:29 | PROVIDERS: ATTENDING PHYSICIAN Internal Medicine Cardiovascular Disease | DX: R42 Dizziness and giddiness (principal); I25.10 Atherosclerotic heart disease of native coronary artery without angina pectoris; I20.9 Angina pectoris, unspecified | CPT/HCPCS: 78431; A9555; J2785 ==

== ENCOUNTER 2025-02-08 11:20 | Day surgery (SDC) | payer BC, SELFPAY ==
[2025-02-02 12:30] VITALS: BMI 34.4
[2025-02-02 12:57] LABS: Hematocrit 40.5 % (39.0-52.0); Hemoglobin 13.6 g/dL (13.0-18.0); Mean Corp Hgb Conc. 33.6 g/dL (33.0-37.0); Mean Corpuscular Volume 98.1 fL (80.0-94.0); Nucleated Red Blood Cells % 0 % (-); Platelet Count 206 10^3/uL (130-400); Red Cell Dist. Width 13.2 % (11.5-14.5)
[2025-02-02 14:37] LABS: ALT (SGPT) 26 U/L (0-50); AST (SGOT) 28 U/L (17-59); Albumin 4.2 g/dl (3.5-5.0); Alkaline Phosphatase 69 U/L (38-126); Blood Urea Nitrogen 16 mg/dl (9-20); Calcium 9.4 mg/dl (8.4-10.2); Carbon Dioxide 26 mmol/L (22-30); Chloride 107 mmol/L (98-107); Estimated Creatinine Clearance 91 ml/min; Glucose 91 mg/dl (70-99); Potassium 4.6 mmol/L (3.5-5.1); Sodium 138 mmol/L (135-145); Total Protein 7.2 g/dl (6.3-8.2); eGFR > 60.00
[2025-02-08] VITALS (9 sets, daily range): BP systolic 132–144; BP diastolic 72–88; BMI 34.0
[2025-02-08 15:11] LABS: ACT-LR - POC 290 Seconds (116-155)
[2025-02-08] MEDS: NSS 1000 IV (16:05)
--- NOTE | 2025-02-08 16:14 | ITS.CL.PN ---
Rn Transfer - Procedure Note
Procedure
Procedure Note:
CARDIAC CATHETERIZATION REPORT
Date of Procedure: 02/08/2025
Referring: Dr. Yevgeniy Lebron MD
Indication: Atypical angina, known coronary artery disease, positive cardiac stress test
PROCEDURE(S)
1. left heart catheterization
2. coronary angiography
3. iFR LAD
4. iFR LCx
ACCESS: 6F right radial artery (closure: radial band)
CATHETERS
1. 6F JR4
2. 6F JL4
3. EBU3.75 guide catheter
MODERATE SEDATION: 25 minutes of moderate sedation was utilized. An independent biomedical engineering supervisor was present to assist with and help manage the patient's level of consciousness and physiologic status.
HEMODYNAMIC DATA
LV 119/9 (EDP 13) mmHg
AO 145/80 (mean 96) mmHg
CORONARY ANGIOGRAPHY
Dominance: Left
LM: Large with mild disease
LAD: Large vessel giving rise to a totally occluded first diagonal that fills with several small diagonal branches and wraps around the apex. There is a widely patent ostial LAD stent. There is diffuse heavily calcified moderate disease in the
mid-LAD with only mild disease distally. Vessel appearance is relatively unchanged from prior angiography at time of 12/2023 PCI (including first diagonal DOG RACES MANAGER).
LCx: Large codominant vessel giving rise to a large OM1, large LPL branch, and moderate caliber LPDA. There are tandem 50% stenosis in the proximal circumflex and a further 50% stenosis just before the takeoff of the OM1. There is otherwise mild
diffuse disease.
RCA: small distribution codominant vessel with 30% mid stenosis. The RCA terminates with a very small PDA.
iFR of LAD
An Omni wire was flushed and zeroed outside the body and then advanced to the left main. The wire introducer was removed and the catheter flushed with saline, after which pressure of the wire and guide were normalized. The wire was advanced to the
mid LAD and iFR recorded at 0.86. iFR pullback was performed noting a diffuse pattern of positivity with the majority the contribution from the long calcified segment in the mid LAD. On return to the left main, iFR appropriately normalized to ~1.0,
confirming lack of wire drift.
iFR of LCx
The wire was renormalized in the left main and advanced to the mid circumflex distal to the takeoff of OM1 and iFR recorded at 0.99. On return to the left main, iFR appropriately normalized to ~1.0, confirming lack of wire drift.
RADIATION: dose 782 mGy; DAP 45 Gy*cm2; fluoroscopy time 11.1 min
CONCLUSIONS & RECOMMENDATIONS: Patient has single-vessel obstructive coronary artery disease with iFR positive heavily calcified diffuse long segment moderate disease in the mid LAD. The patient's symptoms are significantly different from his prior
symptomatology when he had severe ostial LAD disease. At that time he had chest heaviness, now he has shortness of breath and dizziness. Given these less typical symptoms, the lack of significant change in angiographic appearance compared to prior,
and the only mildly positive iFR value, I am not convinced that his symptoms represent angina. His basal/mid anterior stress test positivity may be explained by his diagonal DOG RACES MANAGER, rather than the mid-LAD disease (which would be expected to cause more
distal anterior, apical, and septal ischemia). For now, I recommend medical therapy and workup for nonanginal etiologies of his shortness of breath and dizziness. I will add amlodipine. He should have aggressive risk factor modification including
goal LDL<55. LVEDP was normal so heart failure is unlikely to explain his dyspnea and diuresis is not recommended. Should the patient have symptoms felt to represent angina despite optimal medical therapy and rule out of other causes, PCI of the mid
LAD would be technically feasible, likely with calcium modification and long segment stenting.
Copy to: Dr. Yevgeniy Lebron MD (retail advertising sales manager); Dr. Edward Arauz MD (PCP)
Signed: Tod Tavares MD, PhD
== END 2025-02-08 19:08 | disposition home or self-care (01) ==
LOC: CATH 11:20
PROVIDERS: ATTENDING PHYSICIAN Student in an Organized Health Care Education/Training Program; FAMILY PHYSICIAN Family Medicine; REFERRING PHYSICIAN Internal Medicine Cardiovascular Disease
DX: I25.119 Atherosclerotic heart disease of native coronary artery with unspecified angina pectoris (principal); Z79.899 Other long term (current) drug therapy; I10 Essential (primary) hypertension; E78.5 Hyperlipidemia, unspecified; R42 Dizziness and giddiness; G47.33 Obstructive sleep apnea (adult) (pediatric); E11.9 Type 2 diabetes mellitus without complications; Z79.85 Long-term (current) use of injectable non-insulin antidiabetic drugs; Z79.84 Long term (current) use of oral hypoglycemic drugs; Z79.02 Long term (current) use of antithrombotics/antiplatelets; K76.0 Fatty (change of) liver, not elsewhere classified; Z86.73 Personal history of transient ischemic attack (TIA), and cerebral infarction without residual deficits; N40.0 Benign prostatic hyperplasia without lower urinary tract symptoms; F41.9 Anxiety disorder, unspecified; F32.A Depression, unspecified; E66.9 Obesity, unspecified; Z68.34 Body mass index [BMI] 34.0-34.9, adult; Z87.891 Personal history of nicotine dependence; K44.9 Diaphragmatic hernia without obstruction or gangrene; K21.9 Gastro-esophageal reflux disease without esophagitis; E29.1 Testicular hypofunction; R91.1 Solitary pulmonary nodule; Z79.82 Long term (current) use of aspirin; Z90.49 Acquired absence of other specified parts of digestive tract
CPT/HCPCS: 99152; 99153; 93799 ×2; 36415; 80053; 85025; 85347; 93005; 93458; C1769; C1887; C1894; Q9967

== ENCOUNTER → 2025-03-27 12:00 | Outpatient (REF) | payer BC, SELFPAY | LOC: DHSLP 12:00 | PROVIDERS: ATTENDING PHYSICIAN Internal Medicine Critical Care Medicine; FAMILY PHYSICIAN Family Medicine | DX: G47.33 Obstructive sleep apnea (adult) (pediatric) (principal) | CPT/HCPCS: 95800 ==